=== PATIENT | female | born 1970 | race Caucasian/White ===

== ENCOUNTER 2016-10-22 07:03 | Outpatient (CLI) ==
[2015-11-02 15:15] VITALS: BMI 26.3
[2016-10-22] MEDS ORDERED: INFED IVP STA (07:08)
[2016-10-22 07:38] VITALS: BP 112/76; TEMP 96.1
[2016-10-22] MEDS ORDERED: INFED 1,000 MG in SODIUM CHLORIDE 500 ML IV STA (08:36)
== END 2016-10-22 07:04 | disposition home or self-care (01) ==
LOC: OUTPT 07:03
PROVIDERS: ATTEND Family Medicine
DX: D50.9 Iron deficiency anemia, unspecified (principal)
CPT/HCPCS: 96365; 96366; 96376

== ENCOUNTER 2016-10-30 22:26 | Outpatient (CLI) | payer OTHER ==
[2015-11-02 15:15] VITALS: BMI 26.3
--- NOTE | 2016-10-30 22:54 | DI ---
EXAM: PA and lateral views of the chest. HISTORY: Cough and congestion. FINDINGS: The bones are unremarkable. The cardiac silhouette and pulmonary vasculature are within n ormal limits. There is a questionable right-sided aortic arch. The costophrenic angles are clear. No infiltrate or consolidation. Impression: No acute cardiopulmonary disease. Questionable right-sided aortic arch.
== END 2016-10-30 22:27 | disposition home or self-care (01) ==
LOC: RAD 22:26
PROVIDERS: ATTEND Emergency Medicine
DX: R05 Cough (principal); R09.89 Other specified symptoms and signs involving the circulatory and respiratory systems